=== PATIENT | male | born 1970 | race Caucasian/White ===

== ENCOUNTER 2023-04-12 15:52 | Outpatient (CLI) | payer OTHER, SELFPAY ==
[2023-04-12 20:59] LABS: Basophils Percent Auto 0.6 % (0.2-1.2); Eosinophils Percent Auto 0.4 % (0-4.4); Hematocrit 46.3 % (42.0-52.0); Hemoglobin 14.9 g/dL (14.0-18.0); Immature Granulocyte Absolute 0.02 K/mm3 (0.00-0.031); Immature Granulocyte Percent A 0.3 % (0-0.5); Lymphocytes Absolute Auto 1.72 K/mm3 (0.9-3.2); Lymphocytes Percent Auto 23.7 % (18.3-44.2); Mean Corpuscular HGB Conc 32.2 g/dl (32-36); Mean Corpuscular Hemoglobin 28.2 pg (26-34); Mean Corpuscular Volume 87.7 fl (80-100); Mean Platelet Volume 10.2 fl (7.4-10.4); Monocytes Absolute Auto 0.8 K/mm3 (0.1-0.6); Neutrophils Absolute Auto 4.7 K/mm3 (1.3-6.7); Platelet Count Result 239 k/mm3 (150-375); Red Blood Count 5.28 M/mm3 (4.6-6.20); Red Cell Distribution Width 13.5 % (11.5-14.5); White Blood Count 7.3 K/mm3 (4.5-10.0)
[2023-04-12 21:11] LABS: Alanine Aminotransferase 41 U/L (6-50); Albumin Level 4.7 g/dL (3.5-5.1); Alkaline Phosphatase 75 U/L (38-126); Anion Gap 7 mmol/L (8-16); Aspartate Amino Transferase 49 U/L (17-59); Bilirubin,Total 0.7 mg/dL (0.2-1.3); Blood Urea Nitrogen 12 mg/dL (9-20); Calcium 9.3 mg/dL (8.4-10.2); Carbon Dioxide 33 mmol/L (22-30); Chloride 98 mmol/L (98-107); Cholesterol 254 mg/dL (0-200); Estimated Glomerular Filt Rate > 60; Glucose 104 mg/dL (65-110); HDL Direct 89 mg/dL; Potassium 5.1 mmol/L (3.4-5.0); Sodium 138 mmol/L (137-145); Triglycerides 72 mg/dL (<150)
[2023-04-12 21:22] LABS: LDL Cholesterol Direct 138 mg/dL
[2023-04-12 21:41] LABS: Prostate Specific Antigen 2.4 ng/mL (< OR = 4.0)
[2023-04-12 21:43] LABS: Hemoglobin A1C 5.6 % (<5.7)
[2023-04-17 12:58] LABS: Testosterone Free 64.9 pg/mL (35.0-155.0); Testosterone Total 333 ng/dL (250-1100)
== END 2023-04-12 15:53 | disposition home or self-care (01) ==
LOC: ANHGOSHLAB 15:54
PROVIDERS: PCP Family Medicine; Visit Provider Family Medicine
DX: R53.83 Other fatigue (principal); Z13.220 Encounter for screening for lipoid disorders; I10 Essential (primary) hypertension; Z12.5 Encounter for screening for malignant neoplasm of prostate; R73.01 Impaired fasting glucose
CPT/HCPCS: 36415; 80053; 80061; 83036; 84153; 84402; 84403; 85025; G0103

== ENCOUNTER 2023-12-20 15:31 | Outpatient (CLI) | payer OTHER, SELFPAY ==
[2023-12-20 16:28] LABS: Basophils Percent Auto 0.5 % (0.2-1.2); Eosinophils Absolute Auto 0.1 K/mm3 (0-0.3); Eosinophils Percent Auto 1.3 % (0-4.4); Hematocrit 45.5 % (42.0-52.0); Hemoglobin 14.9 g/dL (14.0-18.0); Immature Granulocyte Absolute 0.05 K/mm3 (0.00-0.031); Immature Granulocyte Percent A 0.6 % (0-0.5); Lymphocytes Absolute Auto 1.89 K/mm3 (0.9-3.2); Lymphocytes Percent Auto 23.8 % (18.3-44.2); Mean Corpuscular HGB Conc 32.7 g/dl (32-36); Mean Corpuscular Hemoglobin 28.6 pg (26-34); Mean Corpuscular Volume 87.3 fl (80-100); Mean Platelet Volume 10.8 fl (7.4-10.4); Monocytes Percent Auto 12.7 % (2.6-8.5); Neutrophils Absolute Auto 4.9 K/mm3 (1.3-6.7); Neutrophils Percent Auto 61.1 % (45.5-73.1); Platelet Count Result 249 k/mm3 (150-375); Red Blood Count 5.21 M/mm3 (4.6-6.20); Red Cell Distribution Width 12.5 % (11.5-14.5); White Blood Count 7.9 K/mm3 (4.5-10.0)
[2023-12-20 16:45] LABS: LDL Cholesterol Direct 126 mg/dL
[2023-12-20 16:53] LABS: Alanine Aminotransferase 37 U/L (6-50); Albumin Level 4.1 g/dL (3.5-5.1); Alkaline Phosphatase 77 U/L (38-126); Anion Gap 7 mmol/L (8-16); Aspartate Amino Transferase 54 U/L (17-59); Bilirubin,Total 0.4 mg/dL (0.2-1.3); Blood Urea Nitrogen 15 mg/dL (9-20); Calcium 9.5 mg/dL (8.4-10.2); Carbon Dioxide 31 mmol/L (22-30); Chloride 102 mmol/L (98-107); Cholesterol 223 mg/dL (0-200); Estimated Glomerular Filt Rate > 60; Glucose 88 mg/dL (65-110); Lipase 193 U/L (23-300); Potassium 4.6 mmol/L (3.4-5.0); Sodium 140 mmol/L (137-145); Triglycerides 209 mg/dL (<150)
[2023-12-20 17:03] LABS: Prostate Specific Antigen 3.2 ng/mL (< OR = 4.0)
[2023-12-20 17:44] LABS: HDL Direct 33 mg/dL
== END 2023-12-20 15:32 | disposition home or self-care (01) ==
LOC: ANHGOSHLAB 15:32
PROVIDERS: PCP Family Medicine; Visit Provider Family Medicine
DX: Z13.220 Encounter for screening for lipoid disorders (principal); Z13.228 Encounter for screening for other metabolic disorders; R53.83 Other fatigue; Z12.5 Encounter for screening for malignant neoplasm of prostate; R10.9 Unspecified abdominal pain
CPT/HCPCS: 36415; 80053; 80061; 83690; 84153; 85025; G0103

== ENCOUNTER 2025-04-03 00:24 | Day surgery (SDC) | payer OTHER, SELFPAY ==
[2025-03-29 09:14] VITALS: BMI 28.4
--- OUTSIDE RECORDS SUMMARY | 2025-04-03 00:27 | XMS_ITS | Continuity of Care Document ---
Author Organization [facility] Address [address] [facility] [place] [address] Phone Care Team Providers Care Subway Car Repairer Name Role Phone Khai Torres MD Unavailable Unavailable Advance Directives Directive Yes / No Effective Date File Name No Information Encounters Encounter Description Practice Location Reason(s) For Visit Diagnoses Date Provider Providers Copied on Encounter [facility], [address] [facility] [place], [id number], [place] tel:[phone] [facility] No Information Brian Ridley. [address], [place], [place], [id number], [place]. tel:[phone] Family History Family Member Type Diagnosis Age At Onset No Information Payers Payer name Insurance type Covered libertarian ID Authoriza tion(s) No Information Social History Type Description Quantity Date Captured Comments Sex Male Smoking Status No Information Chief Complaint And Reason For Visit No Information Plan Of Treatment Date Type Action Status No Information History Of Present Illness Encounter Date Complaint History Of Prese nt Illness No Information Instructions Date Instruction Additional Infor mation No Information Assessments Type Assessment Date No Information
--- OUTSIDE RECORDS SUMMARY | 2025-04-03 00:27 | XMS_ITS | Clinical Summary ---
Author Organization [facility] [employer] Address [address] [place] [address] Care Team Providers Care Composite Engineer Name Role Phone Zana Connor Primary Care Provider [phone] Source Comments [facility] [employer],non-owned Affiliates and Associated Physician Practices is amultiple site organization consisting of ambulatory clinics and hospital sitesin [place], [place], [place] and [place]. This disclosure is being madepursuant to the Care Everywhere program and may not contain all information available regarding this patient. Last updated 18.[facility] [employer] Allergies No known active allergies Medications * Be aware that medications may not be up to date on this document. Alwaysverify current medications with the patient. lisinopril (PRINIVIL; ZESTRIL) 10 MG tablet Take 10 mg by mouth once daily Active Testosterone Cypionate & Prop 200-20 MG/ML SOLN Active Immunizations Immunization Administration Dates Next Due TDAP (7yrs+) 11/19/2017 Social History Tobacco Use Types Packs/Day Years Used Date Smoking Tobacco: Former Smokeless Tobacco: Current Chew Tobacco Cessation:Ready to Q uit: Yes; Counseling Given: Yes Alcohol Use Standard Drinks/Week Comments Yes 0 (1 standard drink = 0.6 oz pur e alcohol) beer 6 pack/day Sex and Gender Information Value Date Recorded Sex Assigned at Not on file Legal Sex Male 5:01 PM CDT Gender Identity Not on file Sexual Orientation Not on file Last Filed Vital Signs Vital Sign Reading Time Taken Comments Blood Pressure 135/76 11/19/2017 3:20 AM WASTE MANAGEMENT SPECIALIST Pulse 78 11/19/2017 3:20 AM WASTE MANAGEMENT SPECIALIST Temperature 36.8 C (98.2 F) 11/19/2017 3:20 AM WASTE MANAGEMENT SPECIALIST Respiratory Rate 18 11/19/2017 3:20 AM WASTE MANAGEMENT SPECIALIST Oxygen Saturation 100% 11/19/2017 3:20 AM WASTE MANAGEMENT SPECIALIST Inhaled Oxygen Concentration - - Weight 104.3 kg (230 lb) 11/18/2017 10:41 PM WASTE MANAGEMENT SPECIALIST Height 185.4 cm (6' 1 ) 11/18/2017 10:41 PM WASTE MANAGEMENT SPECIALIST Body Mass Index 30.34 11/18/2017 10:41 PM WASTE MANAGEMENT SPECIALIST Plan of Treatment Health Maintenance Due Date Last Done Comments COLOGUARD (AGES 45-75) - COL ON CA SCREENING 1972 COLON MONITORING 1972 COLONOSCOPY - COLON CA SCREENING 1972 CT COLONOGRAPHY - COLON CA SCREENING 1972 Colorectal Cancer Screening 1972 FIT - COLON CA SCREENING 1972 FLEX SIG - COLON CA SCREENING 1972 LIPID TESTING 1972 HIV SCREENING 1987 HEPATITIS C SCREENING 10/12/1990 HEPATITIS B VACCINE (1 of 3 - 19+ 3-dose series) 1991 PNEUMOCOCCAL VACCINE 50+ (1 of 1 - PCV) 2022 ZOSTER VACCINE (1 of 2) 2022 COVID-19 VACCINE (1 - 2023-2 5 season) 2024 DEPRESSION SCREENING 11/21/2024 INFLUENZA VACCINE (Season Ended) 2025 DTAP/TDAP/TD VACCINES (2 - T d or Tdap) 11/19/2027 11/19/2017 HIB VACCINE Aged Out No longer eligi ble based on patient's age to complete this topic HPV VACCINE Aged Out No longer eligi ble based on patient's age to complete this topic MENINGOCOCCAL (Group B) VACC INE SHARED DECISION-MAKING Aged Out No longer eligibl e based on patient's age to complete this topic MENINGOCOCCAL GROUPS A/C/Y/W VACCINE Aged Out No longer eligible b ased on patient's age to complete this topic Insurance [facility] Care Teams Composite Engineer Relationship Specialty Start Date End Date Zana Connor DO [id number] [place] [address] PCP - General Family Medicine 06/24/16
--- OUTSIDE RECORDS SUMMARY | 2025-04-03 00:27 | XMS_ITS | Clinical Summary ---
Author Organization [facility] Address [address] [place] [id number] Care Team Providers Care Explosive Technician Name Role Phone Unavailable Primary Care Provider Unavailabl e Social History Tobacco Use Types Packs/Day Years Used Date Smoking Tobacco: Never Assessed Sex and Gender Information Value Date Recorded Sex Assigned at Not on file Legal Sex Male 7:14 PM CDT Gender Identity Not on file Sexual Orientation Not on file Plan of Treatment Health Maintenance Due Date Last Done Comments Colorectal Cancer Screening Colonoscopy (10 Years) 1972 Annual Physical 1975 Hepatitis C 1990 DTaP, Tdap and Td Vaccines ( 1 - Tdap) 1991 Hepatitis B Vaccines (1 of 3 - 19+ 3-dose series) 1991 Pneumococcal Vaccine: 50+ Ye ars (1 of 1 - PCV) 2022 Zoster Vaccines (1 of 2) 2022 COVID-19 Vaccine ( - 2023-2 5 season) 2024 Meningococcal B Vaccine Aged Out No l onger eligible based on patient's age to complete this topic Meningococcal Vaccine Aged Out No will campos eligible based on patient's age to complete this topic RSV Immunizations Under 20 Months Aged Out No longer eligible based on patient's age to complete this topic
[2025-04-03 08:23] VITALS: BP 113/67; PULSE 70; RESP 18; TEMP 36.9; O2SAT 98; BMI 25.9
[2025-04-03] MEDS: LACTATED RINGERS 1,000 ML 150 ML IV CONT (08:40)
--- NOTE | 2025-04-03 08:43 | P.PNAN_ITS ---
Anes - Initial Pre Proc Eval Procedure: Operation Date: 04/03/25 09:30 Proposed Procedures p Screening Colonoscopy - Johan Mccoy MD Date/Time: 04/03/25 08:43 Surgeon: Johan Mccoy MD Pre Op Diagnosis: Screening Patient Data Age: 54 Gender: M Height: 1.85 m Weight: 89.4 kg Last Vital Signs Temp 36.9 C 04/03/25 08:23 Pulse 70 04/03/25 08:23 Resp 18 04/03/25 08:23 BP 113/67 04/03/25 08:23 Pulse Ox 98 04/03/25 08:23 O2 Del Method Room Air 04/03/25 08:23 Allergies Allergy/AdvReac Type Severity Reaction Status Date / Time No Known Allergies Allergy Verified 04/03/25 08:30 Home Medications Medication Instructions Recorded Confirmed Type tiotropium bromide 18 mcg capsule 1 cap inhalation DAILY #90 12/20/23 04/03/25 Rx with inhalation device (Spiriva inhalations with HandiHaler) syringe with needle 3 mL 26 x 5/8 #100 ea 03/01/24 01/15/25 Rx (BD Luer-Carlos Alberto Syringe) escitalopram oxalate 10 mg tablet 10 mg PO DAILY #90 tabs 07/27/24 04/03/25 Rx lisinopril 20 mg tablet 20 mg PO DAILY #90 tabs 11/05/24 04/03/25 Rx testosterone cypionate 100 mg/mL 75 mg (0.75 mL) IM Q14D #10 mL 01/10/25 03/29/25 Rx intramuscular oil sildenafil 100 mg tablet See Rx Instructions .Route 01/15/25 03/29/25 Rx .COMPLEX #9 tabs Patient hx anesthesia problems: none Family hx anesthesia problems: none Results Review: All pre-operative results and documents have been reviewed as part of the pre- operative evaluation. [facility] Past Medical History Medical History Hyperlipidemia LDL goal <130 Centrilobular emphysema Essential (primary) hypertension Hypogonadism in male Family History Family History Mother Family history of malignant neoplasm Social History Social History (Updated 05/14/25 @ 08:44 by John High MD) Smoking status: Former smoker Second hand tobacco smoke exposure: No Smoking end date: 11/21/89 Alcohol intake: never Alcohol use details: QUIT ONE YEAR AGO Substance use: never Substance use type: does not use Living arrangements: alone Occupation/Education: occupation Additional occupation/education comments: cement mixer Gender identity (if verbalized by the patient): Male Sexual Orientation (if Verbalized by the Patient): Straight or Heterosexual Spiritual care concerns: No Agree to blood products: Yes Anes - Eval Final PreProcedure Day of Procedure 04/03/25 08:43 Patient weight: normal Heart: regular rate and rhythm Lungs: clear to auscultation Airway: Mallampati scale class II Neurological: alert and oriented Last oral intake: >/= 8 hours ASA classification: III Emergent: no Anesthetic plan: proceed Anesthesia type and monitoring: general GIVS and standard monitoring Results Review: All pre-operative results and documents have been reviewed as part of the pre- operative evaluation. Informed Consent: The patient's anesthetic plan and its attendant risks and benefits were discussed with the patient/family/POA. Questions were solicited and answers provided to the satisfaction of the patient/family/POA.
--- NOTE | 2025-04-03 09:26 | P.HP_ITS ---
History of Present Illness History of Present Illness Consent: Risks, benefits, and alternatives have been discussed and questions answered. Patient agrees to proceed with procedure. Chief complaint: Screening Narrative: Charan Mendez II is a 54 year old male here for first screening colonoscopy Review of Systems Review of Systems: All systems reviewed & are unremarkable except as noted in HPI and below PMFSH Past Medical History Medical History Hyperlipidemia LDL goal <130 Centrilobular emphysema Essential (primary) hypertension Hypogonadism in male Family History Family History Mother Family history of malignant neoplasm Social History Social History (Updated 04/03/25 @ 08:44 by John High MD) Smoking status: Former smoker Second hand tobacco smoke exposure: No Smoking end date: 11/21/89 Alcohol intake: never Alcohol use details: QUIT ONE YEAR AGO Substance use: never Substance use type: does not use Living arrangements: alone Occupation/Education: occupation Additional occupation/education comments: [employer] Gender identity (if verbalized by the patient): Male Sexual Orientation (if Verbalized by the Patient): Straight or Heterosexual Spiritual care concerns: No Agree to blood products: Yes Meds Home Medications and Allergies Home Medications Medication Instructions Recorded Confirmed Type tiotropium bromide 18 mcg capsule 1 cap inhalation DAILY #90 12/20/23 04/03/25 Rx with inhalation device (Spiriva inhalations with HandiHaler) syringe with needle 3 mL 26 x 5/8 #100 ea 03/01/24 01/15/25 Rx (BD Luer-Carlos Alberto Syringe) escitalopram oxalate 10 mg tablet 10 mg PO DAILY #90 tabs 07/27/24 04/03/25 Rx lisinopril 20 mg tablet 20 mg PO DAILY #90 tabs 11/05/24 04/03/25 Rx testosterone cypionate 100 mg/mL 75 mg (0.75 mL) IM Q14D #10 mL 01/10/25 03/29/25 Rx intramuscular oil sildenafil 100 mg tablet See Rx Instructions .Route 01/15/25 03/29/25 Rx .COMPLEX #9 tabs Allergies Allergy/AdvReac Type Severity Reaction Status Date / Time No Known Allergies Allergy Verified 04/03/25 08:30 Vital Signs Vital Signs - 24 hr 04/03/25 08:23 Temperature 98.5 F Pulse Rate 70 Respiratory Rate 18 Blood Pressure 113/67 Pulse Oximetry 98 Oxygen Delivery Room Air Exam Const: General: comfortable and no acute distress HENMT: Face/Nose/Sinus: Normal nares present Eyes: General: appearance normal, both eyes and all related structures Neck: Neck: no JVD Resp: Auscultation: clear to auscultation bilaterally Cardio: Rate: regular rate Rhythm: regular rhythm GI: Inspection: non-distended GI Palp: Yes Soft to palpation Skin: General skin exam: normal color Neuro: General: gait normal Speech: normal speech Extrem: General: normal to inspection Psych: Mental Status: mental status grossly normal Assessment and Plan Assessment and plan (1) Screening for colon cancer: Code(s): Z12.11 - Encounter for screening for malignant neoplasm of colon Status: Acute Assessment and Plan: colonoscopy
[2025-04-03 09:51] VITALS: BP 103/88; PULSE 67; RESP 18; O2SAT 99
[2025-04-03 10:01] VITALS: BP 96/53; PULSE 63; RESP 18; O2SAT 99
--- NOTE | 2025-04-03 10:08 | SUR.PHASEII ---
Post-Op fluids: Container volume: 0 Waste Amount: 200 True Waste
[2025-04-03 10:11] VITALS: BP 93/57; PULSE 56; RESP 15; O2SAT 99
[2025-04-03 10:17] VITALS: BP 101/56
== END 2025-04-03 10:30 | disposition home or self-care (01) ==
PROVIDERS: PCP Nurse Practitioner; Referring Provider Nurse Practitioner; Visit Provider Internal Medicine Gastroenterology
PROC: 0DJD8ZZ Inspection of Lower Intestinal Tract, Via Natural or Artificial Opening Endoscopic (ICD-10-PCS; CPT 45378; principal; 2025-04-03 09:30)
DX: Z12.11 Encounter for screening for malignant neoplasm of colon (principal); D12.0 Benign neoplasm of cecum; D12.5 Benign neoplasm of sigmoid colon; K64.8 Other hemorrhoids; I10 Essential (primary) hypertension; E29.1 Testicular hypofunction; J43.2 Centrilobular emphysema; Z79.51 Long term (current) use of inhaled steroids; Z87.891 Personal history of nicotine dependence; Z80.9 Family history of malignant neoplasm, unspecified
CPT/HCPCS: 45380; 45385; 88305; J2003; J2704; J7120